=== PATIENT | male | born 1995 | race Caucasian/White ===

== ENCOUNTER 2017-05-31 21:24 | Emergency (ER) | payer BC, MEDICAID ==
--- NOTE | 2017-05-31 21:57 | EDM.PDOC ---
ED HPI GENERAL MEDICAL PROBLEM - General Chief Complaint: Laceration Stated Complaint: Laceration Time Seen by Provider: 05/31/17 21:30 Source of Information: Reports: Patient, RN Notes Reviewed History Limitations: Reports: No Limitations - History of Present Illness INITIAL COMMENTS - FREE TEXT/NARRATIVE: 21 year old male presents to the ED with a large, superficial, laceration to the inner aspect of his right forearm. The injury occurred at work this morning around 7am. He cut his arm on a piece of metal wire at work. The wound has continued to bleed intermittently throughout the day. His tetanus is up to date. He denies intentional self harm. No fever, chills, redness, or drainage. Right Arm Pain Score (Numeric/FACES): 4 - Related Data Allergies Allergy/AdvReac Type Severity Reaction Status Date / Time [place] Allergy Swelling Verified 05/31/17 21:35 Past Medical History - Past Health History Medical/Surgical History: Denies Medical/Surgical History Musculoskeletal History: Reports: Other (See Below) Other Musculoskeletal History: Right shoulder rotator impingement - Past Surgical History HEENT Surgical History: Reports: Oral Surgery Musculoskeletal Surgical History: Reports: ORIF, Shoulder Surgery Social & Family History - Family History Family Medical History: Noncontributory - Tobacco Use Smoking Status *Q: Never Smoker Years of Tobacco use: 7 Packs/Tins Daily: 2 Used Tobacco, but Quit: Yes Month Tobacco Last Used: Nov 2015 Second Hand Smoke Exposure: Yes - Caffeine Use Caffeine Use: Reports: None - Alcohol Use Days Per Week of Alcohol Use: 0 - Recreational Drug Use Recreational Drug Use: No - Living Situation & Occupation Living situation: Reports: , with Spouse Occupation: Employed ED ROS GENERAL - Review of Systems Review Of Systems: See Below Constitutional: Reports: No Symptoms. Denies: Fever, Chills Skin: Reports: Wound Neurological: Reports: No Symptoms. Denies: Numbness, Tingling ED EXAM, SKIN/RASH Exam: See Below Exam Limited By: No Limitations General Appearance: Alert, WD/WN, No Apparent Distress Skin: Warm, Dry, Normal Color, Other (large, well approximated, superficial, laceration to the inner aspect of the right forearm. the wound extends almost the entire length of the forearm. no subcutaneous tissue involvement. ) Course - Vital Signs Last Recorded V/S: Last Vital Signs Temp 97 F 05/31/17 21:30 Pulse 77 05/31/17 21:30 Resp 18 05/31/17 21:30 BP 112/69 05/31/17 21:30 Pulse Ox 99 05/31/17 21:30 - Re-Assessments/Exams Free Text/Narrative Re-Assessment/Exam: The wound is well approximated, therefore sutures are not indicated. Wound cleansed and steri-strips placed. Educated on wound care, return precautions, and s/s of infection. Discharge instructions as documented. Departure - Departure Time of Disposition: 21:57 Disposition: Home, Self-Care 01 Condition: Good Clinical Impression: Laceration - Discharge Information Instructions: Laceration Care, Adult, Laceration Care, Adult, [id number] Referrals: Skyla Otero, [Primary Care Provider] - Forms: ED Department Discharge Additional Instructions: Laceration Try to keep initial dressing in place for 24 hours After 24 hours, you can gently wash the wound with gentle soap and water Apply antibiotic ointment and keep the wound covered for first 2-3 days then leave open to air Steri strips will slowly raise on the edges. Trim the edges. Do not pull off steri strips. Keep wound covered if there is a chance it can get dirty Return to clinic if signs or symptoms of infection arise, including increased redness, swelling, drainage, or fever Tylenol or Ibuprofen as needed for pain
== END 2017-05-31 22:23 | disposition home or self-care (01) ==
LOC: JD.ED 21:24
CPT/HCPCS: 99282; 99283